=== PATIENT | female | born 1995 | race American Indian/Alaskan Native ===

== ENCOUNTER 2021-06-25 15:44 | Emergency (ER) | payer MEDICAID ==
[2021-06-25] MEDS ORDERED: IBUPROFEN 800 MG TAB PO ONE (23:43)
[2021-06-25] MEDS ORDERED: HYDROcodone/ACETAMINOPHEN 5-325 MG TAB PO ONE (23:43)
[2021-06-25] MEDS ORDERED: ONDANSETRON 4 MG ODT TAB PO ONE (23:45)
--- NOTE | 2021-06-26 00:24 | XRay Report ---
CERVICAL SPINE, 4 VIEWS INDICATION / CLINICAL INFORMATION: Pain - fall. COMPARISON: None available. FINDINGS: Vertebral body heights and disc spaces are well-preserved and appear unremarkable. No suggestion of f racture or malalignment. No significant degenerative change. Visualized soft tissues are unremarkable . Visualized lung apices are clear. IMPRESSION: No significant skeletal abnormality. Signer Name: Poly Keyes MD Signed: 06/26/2021 12:19 AM Workstation Name: [id number]
--- NOTE | 2021-06-26 00:25 | XRay Report ---
LUMBAR SPINE, 2 VIEW INDICATION / CLINICAL INFORMATION: Pain - fall. COMPARISON: None available. FINDINGS: Vertebral body heights and disc spaces are well-preserved. Alignment is normal. No visible fracture o r other significant finding. Incidental note is made of a large amount of stool present throughout the colon. IMPRESSION: No significant osseous abnormality. Signer Name: Poly Keyes MD Signed: 06/26/2021 12:20 AM Workstation Name: [id number]
--- NOTE | 2021-06-26 00:26 | XRay Report ---
RIGHT ANKLE, 3 VIEWS INDICATION / CLINICAL INFORMATION: Pain - fall. COMPARISON: None available. FINDINGS: No fracture or dislocation. IMPRESSION: No fracture or dislocation. Signer Name: Poly Keyes MD Signed: 06/26/2021 12:21 AM Workstation Name: [id number]
--- NOTE | 2021-06-26 00:27 | XRay Report ---
LEFT HIP, 2 VIEWS INDICATION / CLINICAL INFORMATION: Pain - fall. COMPARISON: None available. FINDINGS: No fracture or dislocation of either hip. No fracture of the pelvis. Large amount of stool present throughout the visualized colon. IMPRESSION: No acute osseous abnormality noted. Signer Name: Poly Keyes MD Signed: 06/26/2021 12:22 AM Workstation Name: [id number]
--- NOTE | 2021-06-26 01:11 | Emergency Department Report ---
ED Fall HPI - General Chief Complaint: Back Pain/Injury Stated Complaint: FALL Source: patient Mode of arrival: Ambulatory - History of Present Illness Initial Comments: Patient is an 26-year-old -Mexican female with no past medical history who presented to the ED with complaint of acute onset persistent neck pain, left hip pain, low back pain and right ankle pain after she slipped and fell off a ladder landing on her back and her left hip about 12 hours ago at work. Patient states that the pain has been persistent and that in the last 6 hours she has not been able to bear weight on the left leg because of worsening pain. Patient denies loss of consciousness, dizziness, syncope, chest pain, shortness of breath, head injury, headache, change in vision, seizures, numbness and tingling or weakness of upper or lower extremities bilaterally or abdominal pain. 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 denies: headache, numbness, weakness, chest paint, shortness of breath, abdominal pain, hematuria, unable to walk, lightheaded, vertigo, confusion, other - Related Data Previous Rx's Medication Instructions Recorded Last Taken Type Sulfamethoxazole/Trimethoprim 1 each PO BID #6 tablet 05/30/13 Unknown Rx [Bactrim DS] Baclofen 20 mg PO Q12H PRN #24 tablet 06/26/21 Unknown Rx Ibuprofen [Motrin] 800 mg PO Q8HR PRN #30 tablet 06/26/21 Unknown Rx traMADoL [Ultram] 50 mg PO Q6HR PRN #12 tablet 06/26/21 Unknown Rx Allergies Allergy/AdvReac Type Severity Reaction Status Date / Time No Known Allergies Allergy Unverified 05/30/13 14:58 ED Review of Systems ROS: Stated complaint: FALL Other details as noted in HPI Constitutional: denies: chills, fever Eyes: denies: eye pain, eye discharge, vision change ENT: denies: ear pain, throat pain Respiratory: denies: cough, shortness of breath, wheezing Cardiovascular: denies: chest pain, palpitations Endocrine: no symptoms reported Gastrointestinal: denies: abdominal pain, nausea, diarrhea Genitourinary: denies: urgency, dysuria, discharge Musculoskeletal: back pain (lower back), arthralgia (left hip pain, right ankle pain), myalgia. denies: joint swelling Skin: denies: rash, lesions Neurological: denies: headache, weakness, paresthesias Psychiatric: denies: anxiety, depression Hematological/Lymphatic: denies: easy bleeding, easy bruising ED Past Medical Hx - Past Medical History Previous Medical History?: No - Surgical History Past Surgical History?: No - Social History Smoking Status: Never Smoker Substance Use Type: None - Medications Home Medications: Home Medications Medication Instructions Recorded Confirmed Last Taken Type Sulfamethoxazole/Trimethoprim 1 each PO BID #6 tablet 05/30/13 Unknown Rx [Bactrim DS] Baclofen 20 mg PO Q12H PRN #24 tablet 06/26/21 Unknown Rx Ibuprofen [Motrin] 800 mg PO Q8HR PRN #30 tablet 06/26/21 Unknown Rx traMADoL [Ultram] 50 mg PO Q6HR PRN #12 tablet 06/26/21 Unknown Rx ED Physical Exam - General Limitations: No Limitations General appearance: alert, in no apparent distress - Head Head exam: Present: atraumatic, normocephalic, normal inspection - Eye Eye exam: Present: normal appearance, PERRL, EOMI Pupils: Present: normal accommodation - ENT ENT exam: Present: normal exam, normal orophraynx, mucous membranes moist, TM's normal bilaterally, normal external ear exam - Neck Neck exam: Present: normal inspection, tenderness (Palpable cervical paraspinal musculoskeletal tenderness), full ROM. Absent: lymphadenopathy - Respiratory Respiratory exam: Present: normal lung sounds bilaterally. Absent: respiratory distress, wheezes, rales, rhonchi, chest wall tenderness, accessory muscle use, decreased breath sounds, prolonged expiratory - Cardiovascular Cardiovascular Exam: Present: regular rate, normal rhythm, normal heart sounds. Absent: systolic murmur, diastolic murmur, rubs, gallop - GI/Abdominal GI/Abdominal exam: Present: soft, normal bowel sounds. Absent: tenderness, guarding, rebound, hyperactive bowel sounds, hypoactive bowel sounds - Extremities Exam Extremities exam: Present: normal inspection, full ROM, tenderness (Palpable right ankle tenderness), normal capillary refill, other (Palpable left hip tenderness). Absent: pedal edema, joint swelling, calf tenderness - Back Exam Back exam: Present: normal inspection, full ROM, tenderness (Palpable lumbosacral paraspinal musculoskeletal tenderness), muscle spasm, paraspinal tenderness. Absent: CVA tenderness (R), CVA tenderness (L), vertebral tenderness - Neurological Exam Neurological exam: Present: alert, oriented X3, CN II-XII intact, normal gait, reflexes normal - Psychiatric Psychiatric exam: Present: normal affect, normal mood - Skin Skin exam: Present: warm, dry, intact, normal color. Absent: rash ED Course Vital Signs 06/25/21 18:54 Temperature 98.0 F Pulse Rate 89 Respiratory 18 Rate O2 Sat by Pulse 98 Oximetry ED Medical Decision Making - Radiology Data Radiology results: report reviewed, image reviewed [facility] [address] [place] [address] XRay Report Signed Patient: TIFFANIE NÚÑEZ MR#: [id number] : 1995 Acct:[id number] Age/Sex: 26 / F ADM Date: 06/25/21 Loc: ED Attending Dr: Ordering Physician: ABBIE HENRIQUEZ Date of Service: 06/25/21 Procedure(s): XR spine lumbosacral 2-3V Accession Number(s): [id number] cc: ABBIE HENRIQUEZ Fluoro Time In Minutes: LUMBAR SPINE, 2 VIEW INDICATION / CLINICAL INFORMATION: Pain - fall. COMPARISON: None available. FINDINGS: Vertebral body heights and disc spaces are well-preserved. Alignment is normal. No visible fracture or other significant finding. Incidental note is made of a large amount of stool present throughout the colon. IMPRESSION: No significant osseous abnormality. Signer Name: Poly Keyes MD Signed: 06/26/2021 12:20 AM Workstation Name: [id number] Transcribed By: Dictated By: Poly Keyes MD Electronically Authenticated By: Poly Keyes MD Signed Date/Time: 06/26/2119 DD/ TD/TT: Print Cancel [facility] [address] [place] [address] XRay Report Signed Patient: TIFFANIE NÚÑEZ MR#: [id number] : 1995 Acct:[id number] Age/Sex: 26 / F ADM Date: 06/25/21 Loc: ED Attending Dr: Ordering Physician: ABBIE HENRIQUEZ Date of Service: 06/25/21 Procedure(s): XR hip 2-3V LT Accession Number(s): [id number] cc: ABBIE HENRIQUEZ Fluoro Time In Minutes: LEFT HIP, 2 VIEWS INDICATION / CLINICAL INFORMATION: Pain - fall. COMPARISON: None available. FINDINGS: No fracture or dislocation of either hip. No fracture of the pelvis. Large amount of stool present throughout the visualized colon. IMPRESSION: No acute osseous abnormality noted. Signer Name: Poly Keyes MD Signed: 06/26/2021 12:22 AM Workstation Name: [id number] Transcribed By: JR Dictated By: Poly Keyes MD Electronically Authenticated By: Poly Keyes MD Signed Date/Time: 06/26/2121 DD/ TD/TT: [facility] [address] [place] [address] XRay Report Signed Patient: TIFFANIE NÚÑEZ MR#: [id number] : 1995 Acct:[id number] Age/Sex: 26 / F ADM Date: 06/25/21 Loc: ED Attending Dr: Ordering Physician: ABBIE HENRIQUEZ Date of Service: 06/25/21 Procedure(s): XR ankle 3+V RT Accession Number(s): [id number] cc: ABBIE HENRIQUEZ Fluoro Time In Minutes: RIGHT ANKLE, 3 VIEWS INDICATION / CLINICAL INFORMATION: Pain - fall. COMPARISON: None available. FINDINGS: No fracture or dislocation. IMPRESSION: No fracture or dislocation. Signer Name: Poly Keyes MD Signed: 06/26/2021 12:21 AM Workstation Name: [id number] Transcribed By: Dictated By: Poly Keyes MD Electronically Authenticated By: Poly Keyes MD Signed Date/Time: 06/26/2120 DD/ TD/TT: [facility] [address] [place] [address] XRay Report Signed Patient: TIFFANIE NÚÑEZ MR#: [id number] : 1995 Acct:[id number] Age/Sex: 26 / F ADM Date: 06/25/21 Loc: ED Attending Dr: Ordering Physician: ABBIE HENRIQUEZ Date of Service: 06/25/21 Procedure(s): XR spine cervical 2-3V Accession Number(s): [id number] cc: ABBIE HENRIQUEZ Fluoro Time In Minutes: CERVICAL SPINE, 4 VIEWS INDICATION / CLINICAL INFORMATION: Pain - fall. COMPARISON: None available. FINDINGS: Vertebral body heights and disc spaces are well-preserved and appear unremarkable. No suggestion of fracture or malalignment. No significant degenerative change. Visualized soft tissues are unremarkable. Visualized lung apices are clear. IMPRESSION: No significant skeletal abnormality. Signer Name: Poly Keyes MD Signed: 06/26/2021 12:19 AM Workstation Name: [id number] Transcribed By: JR Dictated By: Poly Keyes MD Electronically Authenticated By: Poly Keyes MD Signed Date/Time: 06/26/2118 DD/ TD/TT: - Medical Decision Making This is an 26-year-old -Mexican female with no past medical history who presented to the ED with complaint of acute onset persistent neck pain, left hip pain, low back pain and right ankle pain after she slipped and fell off a ladder landing on her back and her left hip about 12 hours ago at work. Patient states that the pain has been persistent and that in the last 6 hours she has not been able to bear weight on the left leg because of worsening pain. In the ED, patient is alert and oriented x3 and is not in any distress. Patient was treated in the ED for pain. The C-spine x-ray showed no acute fractures or subluxations. The L-spine x-ray also showed no acute fractures and subluxations. The left hip x-ray also showed no acute fractures and subluxations. The right ankle x-ray also showed no acute fractures and subluxations. On reevaluation, patient's pain is well controlled medication, and patient was therefore discharged home on pain medication and muscle relaxants and advised to follow-up with her primary care physician in 7 to 10 days for reevaluation or return to the ED immediately if symptoms get worse. - Differential Diagnosis cervical sprain; hip contusion; bacm muscle spasm; ankle sprain Critical care attestation.: If time is entered above; I have spent that time in minutes in the direct care of this critically ill patient, excluding procedure time. ED Disposition Clinical Impression: Spasm of muscle of lower back, Cervical paraspinous muscle spasm Contusion of left hip and thigh Qualifiers: Encounter type: initial encounter Qualified Code(s): S70.02XA - Contusion of left hip, initial encounter; S70.12XA - Contusion of left thigh, initial encounter Right ankle sprain Qualifiers: Encounter type: initial encounter Involved ligament of ankle: other ligament Qualified Code(s): S93.491A - Sprain of other ligament of right ankle, initial encounter Disposition: HOME / SELF CARE / HOMELESS Is pt being admited?: No Does the pt Need Aspirin: No Condition: Stable Instructions: Muscle Cramps and Spasms, [id number], Ankle Sprain, [id number], Back Injury Prevention, [id number], Contusion, [id number] Additional Instructions: All imaging reports were reviewed and are all nonactionable with no acute fractures or subluxations. Therefore take medications with food, drink plenty of fluids and follow-up with your primary care physician in 5 to 7 days for reevaluation. Return to the ED immediately if symptoms get worse. Prescriptions: Baclofen 20 mg PO Q12H PRN #24 tablet PRN Reason: Muscle Spasm Ibuprofen [Motrin] 800 mg PO Q8HR PRN #30 tablet PRN Reason: Pain , Severe (7-10) traMADoL [Ultram] 50 mg PO Q6HR PRN #12 tablet PRN Reason: Pain Referrals: [facility] [Provider Group] - 7-10 days Time of Disposition: 01:17 Print Language: [place]
[2021-06-26 01:59] VITALS: BP 96/58
== END 2021-06-26 01:54 | disposition home or self-care (01) ==
LOC: ED 15:44
DX: S93.491A Sprain of other ligament of right ankle, initial encounter (principal); S70.12XA Contusion of left thigh, initial encounter; S70.02XA Contusion of left hip, initial encounter; M62.830 Muscle spasm of back; M62.838 Other muscle spasm; W19.XXXA Unspecified fall, initial encounter; Y93.89 Activity, other specified; Y92.89 Other specified places as the place of occurrence of the external cause; Y99.8 Other external cause status
CPT/HCPCS: 72040; 72100; 99283; J3490; Q0162